=== PATIENT | male | born 1965 | race Two or more races ===

== ENCOUNTER 2019-05-08 13:54 | Emergency (ER) | payer BC, OTHER ==
[~2019-05-08] VITALS: Ht 180.3 cm; Wt 128.0 kg
--- NOTE | 2019-05-08 14:00 | NUR ---
Claritza leo in [facility] - 05/08/19 at 1401 by ATA TASK RN: PT AMBULATORY WITH STEADY GAIT TO ROOM AT THIS TIME
--- NOTE | 2019-05-08 14:01 | NUR ---
TASK RN: PT AMBULATORY WITH STEADY GAIT TO ROOM AT THIS TIME
--- NOTE | 2019-05-08 14:27 | NUR ---
ERP AT NOW.
[2019-05-08 14:51] VITALS: BP 132/75
--- NOTE | 2019-05-08 15:20 | NUR ---
D/C INSTRUCTIONS, MEDS & F/U APPT RV'WD WITH PT, HE VERBALIZES UNDERSTANDING. RX GIVEN X1. PT AMBULATED OUT OF ED WITHOUT DIFFICULTY.
== END 2019-05-08 15:27 | disposition home or self-care (01) ==
LOC: ED 15:12
DX: K64.8 Other hemorrhoids (principal)
CPT/HCPCS: 99284